=== PATIENT | male | born 1945 | race Caucasian/White ===

== ENCOUNTER 2017-04-29 07:00 | Outpatient (CLI) | payer MEDICARE ==
[2017-04-29 18:15] LABS: BASOPHILS % (AUTO) 0.7 %; EOSINOPHILS # (AUTO) 0.2 10^3/uL (0.0-0.7); EOSINOPHILS % (AUTO) 3.2 %; HGB - HEMOGLOBIN 15.2 g/dL (14.0-18.0); LYMPHOCYTES # (AUTO) 1.2 10^3/uL (1.5-3.5); LYMPHOCYTES % (AUTO) 19.1 %; MEAN CORPUSCULAR HGB CONC 33.1 g/dL (32.0-36.0); MEAN CORPUSCULAR VOLUME 90.5 fL (80.0-94.0); MEAN PLATELET VOLUME 10.7 fL (7.4-11.4); MONOCYTES # (AUTO) 0.5 10^3/uL (0.0-1.0); MONOCYTES % (AUTO) 8.3 %; NEUTROPHILS # (AUTO) 4.2 10^3/uL (1.5-6.6); NEUTROPHILS % (AUTO) 68.7 %; RED BLOOD COUNT 5.08 10^6/uL (4.70-6.10); RED CELL DISTRIBUTION WIDTH 13.2 % (12.0-15.0); UNCORRECTED WHITE BLOOD COUNT 6.1 x10^3/uL; WHITE BLOOD COUNT 6.1 x10^3/uL (4.8-10.8)
[2017-04-29 18:47] LABS: BILIRUBIN,TOTAL 1.2 mg/dL (0.2-1.0); BUN - BLOOD UREA NITROGEN 15 mg/dL (6-20); CALCIUM 9.4 mg/dL (8.5-10.3); CARBON DIOXIDE - CO2 25 mmol/L (21-32); CHLORIDE 104 mmol/L (101-111); CHOL/HDL RATIO 3.6 (<5.0); CHOLESTEROL 205 mg/dL; CREATININE 0.8 mg/dL (0.6-1.2); GFR - MDRD 95 (>89); GLUCOSE 100 mg/dL (70-100); HDL CHOLESTEROL 57 mg/dL; LDL/HDL RATIO 2.4 (<3.6); POTASSIUM 3.7 mmol/L (3.5-5.0); SODIUM 137 mmol/L (135-145); TOTAL PROTEIN 7.1 g/dL (6.7-8.2); TRIGLYCERIDES 62 mg/dL; VLDL CHOLESTEROL 12 mg/dL
== END 2017-04-29 07:01 | disposition home or self-care (01) ==
LOC: LAB.F 07:00
PROVIDERS: ATTEND Nurse Practitioner Family
DX: R03.0 Elevated blood-pressure reading, without diagnosis of hypertension (principal); Z78.9 Other specified health status; Z12.5 Encounter for screening for malignant neoplasm of prostate
CPT/HCPCS: 36415; 80053; 80061; 84443; 85025; 86803; G0103; 84153

== ENCOUNTER 2018-07-11 08:48 | Outpatient (CLI) | payer MEDICARE ==
[2018-07-11 19:53] LABS: CHOL/HDL RATIO 3.8 (<5.0); CHOLESTEROL 229 mg/dL; HDL CHOLESTEROL 60 mg/dL; LDL CHOLESTEROL,CALCULATED 152 mg/dL; LDL/HDL RATIO 2.5 (<3.6); VLDL CHOLESTEROL 17 mg/dL
== END 2018-07-11 08:49 | disposition home or self-care (01) ==
LOC: LAB.F 08:48
PROVIDERS: ATTEND Nurse Practitioner Family
DX: E78.5 Hyperlipidemia, unspecified (principal); Z12.5 Encounter for screening for malignant neoplasm of prostate
CPT/HCPCS: 36415; 80061; G0103; 83721; 84153

== ENCOUNTER 2018-08-01 08:50 | Emergency (ER) | payer MEDICARE ==
--- NOTE | 2018-08-01 10:38 | CT Report ---
Reason: Headache and neck pain after fall. Procedure Date: 08/01/2018 Accession Number: [id number] / [id number] Procedure: CT - Cervical Spine W/O CPT Code: FULL RESULT: EXAM: CT CERVICAL SPINE WITHOUT CONTRAST DATE: 08/01/2018 09:56 AM. HISTORY: Headache and neck pain after fall. COMPARISONS: None. TECHNIQUE: Thin-section axial images were acquired of the cervical spine without contrast. Post-processing: Coronal and sagittal reformats. Other: None. In accordance with CT protocol optimization, one or more of the following dose reduction techniques were utilized for this exam: automated exposure control, adjustment of mA and/or KV based on patient size, or use of iterative reconstructive technique. FINDINGS: Alignment: No scoliosis or spondylolisthesis. Bones: No acute fracture or bony lesion. Degenerative spurring. Interspace Levels/Facets: C1-C2: Degenerative changes of the anterior arch of C1 and the dens. C2-C3: Facet arthropathy. C3-C4: Disk space narrowing. Uncovertebral hypertrophy. Facet arthropathy. Mild bilateral neural foraminal narrowing. C4-C5: Uncovertebral hypertrophy. Facet arthropathy. Disk space narrowing. Osteophyte formation. C5-C6: Disk space narrowing. Osteophyte formation. Uncovertebral hypertrophy. Facet arthropathy. Mild right and moderate to severe left neural foraminal nearing. C6-C7: Facet arthropathy. C7-T1: Facet arthropathy. Musculature: Normal. No fatty atrophy. Other: The paravertebral and prevertebral soft tissues are unremarkable. Lung apices are clear. Airways are clear. Visualized thyroid gland is unremarkable. Skull base is unremarkable. IMPRESSION: 1. No acute cervical spine abnormalities are identified. 2. Mild degenerative changes of the cervical spine. [facility]IA
--- NOTE | 2018-08-01 10:41 | CT Report ---
Reason: Headache and neck pain after falling. Procedure Date: 08/01/2018 Accession Number: [id number] / [id number] Procedure: CT - Head W/O CPT Code: FULL RESULT: EXAM: CT HEAD EXAM DATE: 08/01/2018 09:56 AM. CLINICAL HISTORY: Headache and neck pain after falling. COMPARISON: None. TECHNIQUE: Multiaxial CT images were obtained from the foramen magnum to the vertex. Reformats: Sagittal and coronal. IV contrast: None. In accordance with CT protocol optimization, one or more of the following dose reduction techniques were utilized for this exam: automated exposure control, adjustment of mA and/or KV based on patient size, or use of iterative reconstructive technique. FINDINGS: Parenchyma: No evidence of an acute vascular insult or acute parenchymal hemorrhage. Parenchymal volume loss and chronic white matter changes. No midline shift. No mass-effect. Extraaxial Spaces: Extra-axial spaces are prominent. No subdural or epidural collections identified. Ventricles: Ventricles are mildly prominent. Ventricles are symmetric and no hydrocephalus. Sinuses and Orbits: Imaged paranasal sinuses, orbits, and mastoids show no significant abnormality. Bones: No evidence of fracture or calvarial defect. Other: Globes and orbits are unremarkable. IMPRESSION: 1. No acute intracranial abnormality is identified. 2. No acute fracture. 3. Parenchymal volume loss and chronic white matter changes. RADIA
[2018-08-01] MEDS ORDERED: HYDROcod/ACETAM 5/325 MG TABLET PO STA (10:59)
--- NOTE | 2018-08-01 11:02 | ED Physician Documentation ---
PD HPI NECK PAIN - Stated complaint Stated Complaint: GLF/NECK PAIN - Chief complaint Chief Complaint: Trauma Hd/Nk - History obtained from History obtained from: Patient, Family () - History of Present Illness Timing - onset: Yesterday Location: Mid Quality: Pain Worsened by: Movement Contributing factors: Trauma (He fell onto his back yesterday, when he slipped on the ice.) Similar symptoms before: Has not had sx before - Additional information Additional information: The patient is a 73-year-old male who slipped on ice yesterday and fell backwards, hitting his head. He had a "small bump" on his head yesterday. This morning he awoke with painful neck. He has had difficulty moving his head because of pain in his neck. He reports slight headache. He denies nausea or vomiting, numbness or weakness. He has taken Tylenol, without relief. Review of Systems Constitutional: denies: Fever Eyes: denies: Decreased vision Ears: denies: Tinnitus/ringing Throat: denies: Sore throat Cardiac: denies: Chest pain / pressure Respiratory: denies: Dyspnea, Cough GI: denies: Abdominal Pain, Nausea, Vomiting Skin: denies: Rash, Abrasion (s) Musculoskeletal: reports: Neck pain. denies: Extremity pain Neurologic: reports: Focal weakness, Headache (Slight), Head injury. denies: Numbness, Altered mental status, LOC PD PAST MEDICAL HISTORY - Past Medical History Past Medical History: No Cardiovascular: None Respiratory: None Neuro: None Endocrine/Autoimmune: None - Past Surgical History Past Surgical History: Yes Ortho: Other HEENT: Tonsil/Adenoidectomy - Present Medications Home Medications: Ambulatory Orders Medication Instructions Recorded Confirmed Hydrocodone/Acetaminophen 1 - 2 each PO Q6H PRN #14 tablet 08/01/18 [Hydrocodon-Acetaminophen 5-325] - Allergies Allergies/Adverse Reactions: Allergies Allergy/AdvReac Type Severity Reaction Status Date / Time No Known Drug Allergies Allergy Verified 08/01/18 08:59 - Living Situation Living Situation: reports: With spouse/s.o. - Social History Does the pt smoke?: No Smoking Status: Never smoker PD ED PE NORMAL - Vitals Vital signs reviewed: Yes (Systolic hypertension initially.) - General General: Alert and oriented X 3, Well developed/nourished, Other (Cervical collar was placed at triage.) - HEENT HEENT: PERRL, EOMI, Ears normal, Pharynx benign, Other (There is slight tenderness to the right occipital scalp. There is no laceration or bony step- off palpated.) - Neck Neck: Supple, no meningeal sign, No bony TTP, No adenopathy, Other (There is tenderness to palpation in the paracervical musculature. No tenderness along the spinous processes.) - Cardiac Cardiac: RRR - Respiratory Respiratory: No respiratory distress, Clear bilaterally - Abdomen Abdomen: Soft, Non tender - Back Back: No spinal TTP - Derm Derm: No rash - Extremities Extremities: No tenderness to palpate, No edema, No calf tenderness / cord - Neuro Neuro: Alert and oriented X 3, No motor deficit, No sensory deficit Eye Opening: Spontaneous Motor: Obeys Commands Verbal: Oriented GCS Score: 15 Results - Vitals Vitals: Oxygen O2 Source Room air - Rads (name of study) CT C-spine Radiology: Prelim report reviewed, EMP read contemporaneously, See rad report (No acute cervical spine abnormalities are identified. Mild degenerative changes of the cervical spine.) Head CT Radiology: Prelim report reviewed, EMP read contemporaneously, See rad report (No acute intracranial abnormality is identified. No acute fracture. Parenchymal volume loss and chronic white matter changes.) PD MEDICAL DECISION MAKING - ED course Complexity details: reviewed results, re-evaluated patient, considered differential, d/w patient, d/w family ED course: The patient's presentation is significant for cervical strain secondary to falling yesterday, with a scalp contusion. Head CT reveals no intracranial abnormality, and cervical spine CT reveals no evidence of cervical fracture or dislocation. Treatment in the emergency department included administration of Vicodin one tablet orally. He is being discharged with a prescription for Vicodin, 14 tablets. I discussed with him and his the results of the imaging studies, expected course of injury, symptomatic treatment and outpatient follow-up, as well as potentially worrisome signs or symptoms that should prompt reevaluation in the emergency department. Departure - Departure Disposition: 01 Home, Self Care Clinical Impression: Fall Qualifiers: Encounter type: initial encounter Qualified Code(s): W19.XXXA - Unspecified fall, initial encounter Cervical strain, acute Qualifiers: Encounter type: initial encounter Qualified Code(s): S16.1XXA - Strain of muscle, fascia and tendon at neck level, initial encounter Condition: Stable Instructions: ED Sprain Strain Neck Follow-Up: Margarita Cunningham ARNP [Credentialed Staff Provider] - Prescriptions: Hydrocodone/Acetaminophen [Hydrocodon-Acetaminophen 5-325] 1 - 2 each PO Q6H PRN #14 tablet PRN Reason: pain Comments: Apply ice pack to your neck intermittently for the next 2 or 3 days. You can use ibuprofen, up to 800 mg 3 times daily for its anti-inflammatory effect. You can use Vicodin as prescribed if needed for pain. Let pain be your guide to activity level. Follow-up with your primary physician if not improving within 1-2 weeks. Return to the emergency department if you develop markedly increasing pain, numbness or weakness, or otherwise worsening symptoms. Discharge Date/Time: 08/01/18 11:33
[2018-08-01 11:30] VITALS: BP 160/96
== END 2018-08-01 11:33 | disposition home or self-care (01) ==
LOC: ED 08:50
DX: S16.1XXA Strain of muscle, fascia and tendon at neck level, initial encounter (principal); W00.0XXA Fall on same level due to ice and snow, initial encounter; Y92.89 Other specified places as the place of occurrence of the external cause
CPT/HCPCS: 70450; 72125; 99283; A9270

== ENCOUNTER 2019-02-24 09:50 | Outpatient (CLI) | payer MEDICARE ==
[2019-02-24 18:00] LABS: BASOPHILS % (AUTO) 0.5 %; EOSINOPHILS # (AUTO) 0.3 10^3/uL (0.0-0.7); EOSINOPHILS % (AUTO) 4.9 %; HGB - HEMOGLOBIN 14.3 g/dL (14.0-18.0); LYMPHOCYTES % (AUTO) 16.6 %; MEAN CORPUSCULAR HEMOGLOBIN 29.6 pg (27.0-31.0); MEAN CORPUSCULAR VOLUME 92.5 fL (80.0-94.0); MONOCYTES # (AUTO) 0.6 10^3/uL (0.0-1.0); MONOCYTES % (AUTO) 9.8 %; NEUTROPHILS # (AUTO) 4.2 10^3/uL (1.5-6.6); PLT - PLATELET COUNT 282 10^3/uL (130-450); RED BLOOD COUNT 4.83 10^6/uL (4.70-6.10); RED CELL DISTRIBUTION WIDTH 12.9 % (12.0-15.0); WHITE BLOOD COUNT 6.1 x10^3/uL (4.8-10.8)
[2019-02-24 18:50] LABS: HEMOGLOBIN A1C 0.57 g/dL; HEMOGLOBIN A1C % 5.6 % (4.6-6.2)
[2019-02-24 18:54] LABS: ALBUMIN 4.6 g/dL (3.2-5.5); ALBUMIN/GLOBULIN RATIO 1.6 (1.0-2.2); BILIRUBIN,TOTAL 0.9 mg/dL (0.2-1.0); CALCIUM 9.2 mg/dL (8.5-10.3); CREATININE 0.7 mg/dL (0.6-1.2); TOTAL PROTEIN 7.4 g/dL (6.7-8.2)
--- NOTE | 2019-02-25 19:24 | XRAY Report ---
Reason: SHOULDER PAIN, RIGHT, M25.511 Procedure Date: 02/24/2019 Accession Number: [id number] / [id number] Procedure: XRS - Shoulder 3 View RT CPT Code: FULL RESULT: EXAM: RIGHT SHOULDER RADIOGRAPHY EXAM DATE: 02/24/2019 10:04 AM. CLINICAL HISTORY: Shoulder pain, right. Fall. COMPARISON: None. TECHNIQUE: 4 views. FINDINGS: Bones: Normal. No fracture or bone lesion. Joints: The glenohumeral and acromioclavicular joints are normally aligned. Moderate acromioclavicular degenerative changes. Mild glenohumeral degenerative changes. Soft tissues: The visualized hemithorax is unremarkable. No soft tissue swelling. IMPRESSION: Mild to moderate right shoulder degenerative changes without acute abnormality seen. [facility]
== END 2019-02-24 09:51 | disposition home or self-care (01) ==
LOC: DI.S 09:50
PROVIDERS: ATTEND Registered Nurse
DX: M19.011 Primary osteoarthritis, right shoulder (principal); E78.5 Hyperlipidemia, unspecified; R03.0 Elevated blood-pressure reading, without diagnosis of hypertension
CPT/HCPCS: 36415; 80053; 83036; 84443; 85025

== ENCOUNTER 2019-03-27 08:13 | Outpatient (CLI) | payer MEDICARE ==
--- NOTE | 2019-03-27 10:49 | MRI Report ---
Reason: RT SHOULDER PAIN Procedure Date: 03/27/2019 Accession Number: [id number] / [id number] Procedure: MRI - Shoulder RT W/O CPT Code: FULL RESULT: EXAM: RIGHT SHOULDER MRI WITHOUT CONTRAST EXAM DATE: 03/27/2019 09:06 AM. CLINICAL HISTORY: Right shoulder pain COMPARISON: SHOULDER 3 VIEW RT 02/24/2019 10:11 AM. TECHNIQUE: Multiplanar, multisequence T1-weighted and fluid-sensitive sequences of the shoulder without contrast. Other: None. FINDINGS: Acromioclavicular Region: The acromion is type II. Moderate degenerative joint disease with osteophytes and mild subcortical cyst/marrow edema. The coracoacromial and coracoclavicular ligaments are intact. Small amount of subacromial and subdeltoid bursal fluid. Glenohumeral Region: No subluxation. No effusion or loose bodies. Mild cartilage thinning and small glenohumeral osteophytes. The glenohumeral ligaments and joint capsule are unremarkable. Bone Marrow: No fracture, marrow edema or bone lesions. Labrum: T2 hyperintensity through the posterior superior labrum with indistinct appearance of the labrum and a 0.7 cm posterior paralabral cyst, consistent with labral tear. Musculature/Rotator Cuff: There is a 0.8 cm 50% partial thickness tear of the anterior leading edge of the supraspinatus, near the level of the AC joint. Mild T2 hyperintensity distal supraspinatus and infraspinatus, tendinosis. Biceps Tendon: The long head of the biceps tendon and biceps perfecto are intact. Other: The subcutaneous tissues are unremarkable. IMPRESSION: 1. 0.8 cm 50% partial tear anterior edge of the supraspinatus near AC joint level. 2. Posterior labral tear with paralabral cyst. 3. 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 [facility]
== END 2019-03-27 08:14 | disposition home or self-care (01) ==
LOC: DI 08:13
PROVIDERS: ATTEND Orthopaedic Surgery Sports Medicine
DX: M19.011 Primary osteoarthritis, right shoulder (principal); M75.101 Unspecified rotator cuff tear or rupture of right shoulder, not specified as traumatic; S43.491A Other sprain of right shoulder joint, initial encounter